=== PATIENT | female | born 1995 | race Caucasian/White ===

== ENCOUNTER → 2022-04-24 | Outpatient (CLI) | payer OTHER ==
[2022-04-28 03:09] LABS: CHLAMYDIA BY NAA Negative (Negative); GONOCOCCUS BY NAA Negative (Negative); TRICH VAG BY NAA Negative (Negative)
== END | disposition home or self-care (01) ==
LOC: LAB 18:03 → LAB SHORT 18:03
PROVIDERS: Physician Assistant
DX: Z20.9 Contact with and (suspected) exposure to unspecified communicable disease (principal)
CPT/HCPCS: 87491; 87591; 87661

== ENCOUNTER → 2023-06-30 | Outpatient (CLI) | payer OTHER ==
[2023-07-01 11:20] LABS: Candida species (DNA Probe) Negative (NEGATIVE); G. vaginalis (DNA Probe) Positive (NEGATIVE); T. vaginalis (DNA Probe) Positive (NEGATIVE)
[2023-07-04 04:09] LABS: CHLAMYDIA TRACHOMATIS, NAA Negative (Negative)
== END ==
LOC: LAB 19:48 → LAB SHORT 19:48
PROVIDERS: Family Medicine
DX: N89.8 Other specified noninflammatory disorders of vagina (principal)
CPT/HCPCS: 87480; 87491; 87510; 87591; 87660